=== PATIENT | female | born 1935 | race Caucasian/White ===

== ENCOUNTER 2016-11-03 14:35 | Emergency (ER) | payer BC ==
--- NOTE | 2016-11-03 15:17 | PDOC ---
History of Present Illness - General History Source: Patient, Family, Old Records Exam Limitations: No Limitations - History of Present Illness Initial Comments: 11/03/16 15:41 The patient is a 81 year old female, accompanied by and daughter, with a past medical history of PE and mesothelioma of the lungs and abdomen ( diagnosed 09/2016), who presents to the emergency department today with epigastric pain and vomiting for one week. The patient lives in [place] but has come to [place] to stay with her daughter and receive care from [facility]. This week the patient has vomited once per day usually in the morning. She states that her epigastric pain is diffuse, sharp, and a 10/10 in severity. The patient has been taking Tylenol for pain with mild alleviation. The patient states that she is with a english catheter which, she drained approximately one hour ago, but has not been draining since. The patient reports associated decreased energy, abdominal distention, and nausea. She denies fever. <Samir Sandra - Last Filed: 11/03/16 18:13> <See Marquez - Last Filed: 11/03/16 18:35> - General Chief Complaint: Nausea/Vomiting Stated Complaint: ABDOMINAL DISTENTION, PAIN, NAUSEA Time Seen by Provider: 11/03/16 15:16 Past History <Samir Sandra - Last Filed: 11/03/16 18:13> <See Marquez - Last Filed: 11/03/16 18:35> - Past Medical History Allergies/Adverse Reactions: Allergies Allergy/AdvReac Type Severity Reaction Status Date / Time garlic Allergy Intermediate Vomiting Verified 11/03/16 15:04 Penicillins Allergy Unknown Verified 11/03/16 15:04 Home Medications: Ambulatory Orders Acetaminophen [Tylenol Extra Strength] 500 mg PO TID PRN 11/03/16 Clopidogrel Bisulfate [Clopidogrel] 75 mg PO HS 11/03/16 Folic Acid 1 mg PO DAILY 11/03/16 Furosemide [Lasix] 20 mg PO BID 11/03/16 Metoprolol Tartrate 12.5 mg PO BID 11/03/16 Pravastatin Sodium [Pravachol] 40 mg PO HS 11/03/16 Simethicone 20 mg PO PRN PRN 11/03/16 Spironolactone [Aldactone] 25 mg PO DAILY 11/03/16 Review of Systems - Review of Systems Able to Perform ROS?: Yes Comments:: 11/03/16 15:42 CONSTITUTIONAL: Absent: Fever, Chills, Diaphoresis, Generalized Weakness, Malaise, Loss of Appetite HEENT: Absent: Rhinorrhea, Nasal Congestion, Throat Pain, Throat Swelling, Difficulty Swallowing, Mouth Swelling, Ear Pain, Eye Pain, Visual Changes CARDIOVASCULAR: Absent: Chest Pain, Syncope, Palpitations, Irregular Heart Rate, Lightheadedness , Peripheral Edema RESPIRATORY: Present: Mesothelioma Absent: Cough, Shortness of Breath, SOB with Exertion, Orthopnea, Wheezing, Stridor, Hemoptysis GASTROINTESTINAL: Present: Epigastric pain, Abdominal Distension, Nausea, Vomiting. Absent: Diarrhea, Constipation, Melena, Hematochezia GENITOURINARY: Present: English complications. Absent: Dysuria, Frequency, Urgency, Hesitancy, Flank Pain, Genital Pain MUSCULOSKELETAL: Absent: Myalgia, Arthralgia, Joint Swelling, Back pain, Neck Pain SKIN: Absent: Rash, Itching, PalloR HEMEATOLOGIC/IMMUNOLOGIC: Absent: Easy Bleeding, Easy Bruising, Lymphadenopathy, Frequent infections ENDOCRINE: Absent: Unexplained Weight Gain, Unexplained Weight Loss, Heat Intolerance, Cold Intolerance NEUROLOGIC: Absent: Headache, Focal Weakness, Paresthesias, Vertigo, Lightheadedness, Unsteady Gait, Seizure, Mental Status Changes, Incontinence PSYCHIATRIC: Absent: Anxiety, Depression <Samir Sandra - Last Filed: 11/03/16 18:13> *Physical Exam - Vital Signs Last Vital Signs Temp Pulse Resp BP Pulse Ox 98.5 F 112 H 18 96/65 96 11/03/16 14:56 11/03/16 14:56 11/03/16 14:56 11/03/16 14:56 11/03/16 14:56 - Physical Exam Comments: 11/03/16 15:42 GENERAL: The patient is awake, alert, and fully oriented, in no acute distress. HEAD: Normal with no signs of trauma. EYES: Pupils equal, round and reactive to light, extraocular movements intact, sclera anicteric, conjunctiva clear. ENT: Ears normal, nares patent, oropharynx clear without exudates. Moist mucous membranes. NECK: Normal range of motion, supple without lymphadenopathy, JVD, or masses. LUNGS: (+) Markedly decreased breath sounds in left chest.. HEART: (+) Tachycardic, regular rhythm, normal S1 and S2 without murmur, rub or gallop. ABDOMEN: (+) Soft, diffuse distention of abdomen with mild diffuse tenderness. Normoactive bowel sounds. No guarding, no rebound. No masses. EXTREMITIES: Normal range of motion, no edema. No clubbing or cyanosis. No cords , erythema, or tenderness. NEUROLOGICAL: Cranial nerves II through XII grossly intact. Normal speech, normal gait. PSYCH: Normal mood, normal affect. SKIN: Warm, Dry, normal turgor, no rashes or lesions noted. <Samir Sandra - Last Filed: 11/03/16 18:13> Heart Score/ECG Review - ECG Intrepretation Comment:: 11/03/16 17:59 Twelve-lead EKG shows sinus tachycardia at a rate of 103 bpm. Left bundle branch block. No old EKG for comparison. <See Marquez - Last Filed: 11/03/16 18:35> ED Treatment Course - LABORATORY CBC & Chemistry Diagram: 11/03/16 16:00 11/03/16 16:00 <Samir Sandra - Last Filed: 11/03/16 18:13> - LABORATORY CBC & Chemistry Diagram: 11/03/16 16:00 11/03/16 16:00 <See Marquez - Last Filed: 11/03/16 18:35> Medical Decision Making - Medical Decision Making 11/03/16 17:[address] May's service placed [phone]. Awaiting call back. 11/03/16 17:[address] May's service placed [phone]. Awaiting call back. 11/03/16 17:[address] May's service placed [phone]. Awaiting call back. 11/03/16 16:[address] May's service today called into ED. Case discussed. Patient has stage 4 mesothelioma and is only a candidate for palliative care. Patient has been diagnosed with diffuse peritoneal carcinomatosis. 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 She comes in with abdominal discomfort. She has known abdominal involvement. She had been placed on Percocet but did not want to take narcotics. She has been taking Tylenol as needed at home. She also comes in because she was concerned about her English catheter. The urine output today was somewhat less. On examination, she is thin and cachectic. She is awake and alert. Lungs have decreased breath sounds on the left consistent with probable pleural effusion. Heart is regular rhythm with borderline tachycardia. Abdomen has diffuse tenderness and firmness consistent with known peritoneal carcinomatosis. English catheter is in place. We changed the English catheter is draining better post change. The patient received IV Tylenol and she states her pain has resolved. I discussed the plan of care with the team at [facility] and they stated she is only a candidate for palliation given her advanced stage of disease and her poor performance status. Given that the patient is feeling better and wishes to go home, the physicians at [facility] states she has an appointment for follow-up in a few days. Twelve-lead EKG reviewed has left bundle branch block. No old EKG for comparison. Given his advanced age of disease and plan for palliation, no further cardiac workup is indicated at this time. Patient will be discharged home with family as her life expectancy is very limited. Laboratory studies all reviewed. Laboratory Results - last 24 hr 11/03/16 11/03/16 11/03/16 16:00 16:00 17:55 WBC 12.5 H RBC 4.81 Hgb 12.8 Hct 39.0 MCV 81.0 MCH 26.6 MCHC 32.8 RDW 15.0 Plt Count 443 H MPV 7.9 Neutrophils % 87.4 H Lymphocytes % 6.0 L Monocytes % 5.8 Eosinophils % 0.2 Basophils % 0.6 Sodium 134 L Potassium 3.0 L Chloride 96 L Carbon Dioxide 28 Anion Gap 10 BUN 24 H Creatinine 0.7 Creat Clearance w eGFR > 60 Random Glucose 125 H Calcium 9.1 Total Bilirubin 1.1 H AST 18 ALT 18 Alkaline Phosphatase 103 H Total Protein 6.7 Albumin 3.0 L Lipase < 20 L Urine Color Yellow Urine Appearance Slightly Urine pH 5.5 Ur Specific [place] 1.015 Urine Protein 2+ H Urine Glucose (UA) Negative Urine Ketones Negative Urine Blood Trace-intact Urine Nitrite Negative Urine Bilirubin 1+ H Urine Urobilinogen 1.0 Ur Leukocyte Esterase 1+ H Impression: Stage IV mesothelioma with declining performance status. Pain management with Tylenol as needed. Follow-up at [facility] this week as scheduled. Mild hypokalemia treated with potassium supplement. She states she will increase her intake of orange juice and bananas. She will further increase her intake of fluids. Mild pyuria, no treatment at this time as no urinary symptoms and WBC is likely related to peritoneal carcinmatosis. Will check culture and treat if positive. <See Marquez - Last Filed: 11/03/16 18:35> *DC/Admit/Observation/Transfer - Attestations Scribe Attestion: 11/03/16 15:42 Documentation prepared by Samir Sandra, acting as medical laboratory technicians for See Marquez MD. <Samir Sandra - Last Filed: 11/03/16 18:13> - Discharge Dispostion Admit: No <See Marquez - Last Filed: 11/03/16 18:35> Diagnosis at time of Disposition: Mesothelioma of left lung, Mesothelioma of peritoneum - Discharge Dispostion Disposition: HOME Condition at time of disposition: Guarded - Patient Instructions Additional Instructions: You were evaluated today for abdominal pain. The blood tests showed mild low potassium. Increase your intake of fruits and vegetables such as orange juice and bananas to improve your potassium level. A potassium supplement was also given in the emergency department. Take Tylenol as needed for pain. Follow-up with the doctor at [facility] this week as scheduled. Return to the emergency department for any severe or progressive symptoms. A urine culture was performed today and you will be contacted if it is shows any infection.
[2016-11-03 15:24] VITALS: BP 96/65; PULSE 112; TEMP 98.5
[2016-11-03] MEDS ORDERED: ONDANSETRON 4 MG/2 ML VIAL IVPB ONE (15:31)
[2016-11-03] MEDS ORDERED: ACETAMINOPHEN 1000 MG/100 ML VIAL (NON FORMULARY) IVPB ONE (15:32)
[2016-11-03] MEDS ORDERED: ONDANSETRON 4 MG/2 ML VIAL ONE (15:55)
[2016-11-03] MEDS ORDERED: ACETAMINOPHEN INJECTION 100 ML IVPB ONE (15:55)
[2016-11-03] MEDS ORDERED: SODIUM CHLORIDE 500 ML IV STA (16:19)
[2016-11-03 16:37] LABS: BASOPHIL 0.6 % (0-2.0); EOSINOPHIL 0.2 % (0-4.5); MCH 26.6 pg (25.7-33.7); MCHC 32.8 g/dl (32.0-36.0); MEAN PLT VOLUME 7.9 fl (7.5-11.1); NEUTROPHILS 87.4 % (42.8-82.8); PLATELET COUNT 443 K/MM3 (134-434); WHITE BLOOD COUNT 12.5 K/mm3 (4.0-10.8)
[2016-11-03 16:48] LABS: ALK PHOS 103 U/L (32-92); ANION GAP 10 (8-16); BILIRUBIN,TOTAL 1.1 mg/dl (0.2-1.0); CALCIUM 9.1 mg/dl (8.4-10.2); CO2 28 mmol/L (22-28); CREATININE 0.7 mg/dl (0.6-1.3); GLUCOSE,RANDOM 125 mg/dl (74-106); SGOT/AST 18 U/L (10-42); SGPT/ALT 18 U/L (10-40); TOT PROT 6.7 g/dl (6.4-8.3)
[2016-11-03] MEDS ORDERED: POTASSIUM CHLORIDE TABS 20 MEQ TABLET.ER (FP) PO ONE ×3 (16:58→18:40)
[2016-11-03 18:02] LABS: PH,URINE 5.5 (4.5-8); URINE APPEARANCE Slightly; URINE BILIRUBIN 1+ (NEGATIVE); URINE BLOOD Trace-intact (NEGATIVE); URINE GLUCOSE (UA) Negative (NEGATIVE); URINE KETONE Negative (NEGATIVE); URINE NITRITE Negative (NEGATIVE)
[2016-11-03 18:03] LABS: URINE LEUK ESTERASE 1+ (NEGATIVE); URINE PROTEIN 2+ (NEGATIVE)
[2016-11-03 18:04] LABS: URINE COLOR YELLOW
[2016-11-03 18:37] LABS: URINE HYALINE CAST 0-2 /lpf; URINE MUCUS 1+; WHITE BLOOD CELL CAST 0-1 /lpf
--- NOTE | 2016-11-06 09:25 | EKG ---
Test Reason : Blood Pressure : / mmHG Vent. Rate : 103 BPM Atrial Rate : 103 BPM P-R Int : 136 ms QRS Dur : 128 ms QT Int : 382 ms P-R-T Axes : 061 -49 120 degrees QTc Int : 500 ms SINUS TACHYCARDIA LEFT AXIS DEVIATION LEFT VENTRICULAR HYPERTROPHY WITH QRS WIDENING AND REPOLARIZATION ABNORMALITY NO PREVIOUS ECGS AVAILABLE Confirmed by MD METCALF MARJORY ([id number]) on 11/06/2016 9:24:50 AM Referred By: DR FLORES Confirmed By:YASMINE METCALF MD
== END 2016-11-03 18:53 | disposition home or self-care (01) ==
LOC: FER 14:35
PROC: 3E033NZ Introduction of Analgesics, Hypnotics, Sedatives into Peripheral Vein, Percutaneous Approach (ICD-10-PCS; principal; 2016-11-03)
PROC: 3E033GC Introduction of Other Therapeutic Substance into Peripheral Vein, Percutaneous Approach (ICD-10-PCS; 2016-11-03)
PROC: 3E0337Z Introduction of Electrolytic and Water Balance Substance into Peripheral Vein, Percutaneous Approach (ICD-10-PCS; 2016-11-03)
DX: C45.7 Mesothelioma of other sites (principal); C45.1 Mesothelioma of peritoneum
CPT/HCPCS: 36415; 71020-TC; 80053; 81003; 81015; 83690; 85025; 87086; 87186; 93005; 99283-25